=== PATIENT | female | born 1950 | race Caucasian/White ===

== ENCOUNTER 2021-02-09 07:42 | Emergency (ER) | payer MEDICARE ==
[~2021-02-09] VITALS: Ht 162.6 cm; Wt 69.3 kg
[~2021-02-09 07:42] MED LIST: CHOL50004 PO; CLOP75TA15 PO; CYAN-51 PO; EZET10TA6 PO; LACT10SO57 PO; LISI20TA28 PO; RANI150C4 PO; ROSU40TA PO; [UNRECOGNIZED DRUG - CODE] PO
[2021-02-09] MEDS ORDERED: fentaNYL/PF 50MCG/1 ML 2ML syringe IV ONE (08:20)
[2021-02-09] MEDS ORDERED: ondansetron/PF 4mg/2ml inj IV ONE (08:20)
--- NOTE | 2021-02-09 08:21 | NUR ---
PT TAKEN TO CT VIA W/C BY TECH.
[2021-02-09] MEDS ORDERED: normal saline 1000ML IV soln IVB ONE (08:25)
[2021-02-09] MEDS ORDERED: naloxone 2mg/2ml inj ONE (09:01)
[2021-02-09] MEDS ORDERED: ketorolac tromethamine 15mg/ml inj. IV ONE (09:20)
[2021-02-09] MEDS ORDERED: PROC-8 PO (10:24)
[2021-02-09] MEDS ORDERED: ACET-3067 PO (10:24)
[2021-02-09] MEDS ORDERED: proCHLORperazine 10 MG/2 ml inj IV ONE (10:25)
[2021-02-09 10:51] VITALS: BP 120/78
== END 2021-02-09 10:55 | disposition home or self-care (01) ==
LOC: ER 07:43
DX: R51.9 Headache, unspecified (principal); R11.0 Nausea; E78.00 Pure hypercholesterolemia, unspecified; I10 Essential (primary) hypertension; G56.00 Carpal tunnel syndrome, unspecified upper limb; Z86.73 Personal history of transient ischemic attack (TIA), and cerebral infarction without residual deficits; Z79.899 Other long term (current) drug therapy
CPT/HCPCS: 70450; 96374; 96375; 99284; J0780; J1885; J2310; J2405; J3010; J7030

== ENCOUNTER 2021-02-12 11:05 | Emergency (ER) | payer MEDICARE ==
[~2021-02-12] VITALS: Ht 264.2 cm; Wt 70.5 kg
[~2021-02-12 11:05] MED LIST changes: +ACET-3067 PO; +PROC-8 PO
[2021-02-12] MEDS ORDERED: PROC-8 PO (13:08)
[2021-02-12 13:30] VITALS: BP 145/79
== END 2021-02-12 13:31 | disposition home or self-care (01) ==
LOC: ER 11:06
DX: R51.9 Headache, unspecified (principal); E78.00 Pure hypercholesterolemia, unspecified; I11.9 Hypertensive heart disease without heart failure; Z79.899 Other long term (current) drug therapy
CPT/HCPCS: 99283

== ENCOUNTER 2021-02-16 19:51 | Emergency (ER) | payer OTHER, MEDICARE ==
[~2021-02-16] VITALS: Ht 162.6 cm; Wt 67.2 kg
[~2021-02-16 19:51] MED LIST changes: -ACET-3067 PO
--- NOTE | 2021-02-16 20:50 | NUR ---
PT REPORTED 10/10 PAIN, TOOK TYLENOL W/ CODINE AROUND 1100 AT ONSET OF HEADACHE. pT TOOK ZOFRAN FOR NAUSEA/VOMITING. C/O OF 4/10 PAIN NOW.
--- NOTE | 2021-02-16 20:52 | NUR ---
pT DENIES FALL. pT IS CURRENTLY TAKING PLAVIX.
--- NOTE | 2021-02-16 21:45 | NUR ---
ED MD ALCALA NOTIFIED OF PT C/O, VS. DR IRWIN TO SEE PT WHEN HE ARRIVES ON SHIFT, FREDRICK REPORTS NO NEED TO ORDER ANY PROTOCOLS AT THIS TIME.
[2021-02-16 21:51] VITALS: BP 179/92
--- NOTE | 2021-02-16 21:52 | NUR ---
PT C/O OF NAUSEA. OFFERED ANTINAUSEA MEDICATION, PT DENIED.
--- NOTE | 2021-02-16 22:14 | NUR ---
MD IRWIN AT BEDSIDE
[2021-02-16] MEDS ORDERED: acetaminophen 325mg tablet PO ONE (22:20)
[2021-02-16] MEDS ORDERED: ondansetron/PF 4mg/2ml inj IV ONE (22:20)
[2021-02-16] MEDS ORDERED: ONDA4TAB6 PO (22:20)
[2021-02-16] MEDS ORDERED: ketorolac trometh. 30mg/ml inj. IV ONE ×2 (22:20→22:40)
[2021-02-16] MEDS ORDERED: proCHLORperazine 10 MG/2 ml inj IV ONE (22:20)
== END 2021-02-16 22:53 | disposition home or self-care (01) ==
LOC: ER 19:52
DX: I10 Essential (primary) hypertension (principal); R03.0 Elevated blood-pressure reading, without diagnosis of hypertension; E78.00 Pure hypercholesterolemia, unspecified; Z86.73 Personal history of transient ischemic attack (TIA), and cerebral infarction without residual deficits; Z79.899 Other long term (current) drug therapy
CPT/HCPCS: 96374; 96375; 99284; J0780; J1885; J2405

== ENCOUNTER 2024-04-14 06:33 | Emergency (ER) | payer OTHER, MEDICARE ==
[~2024-04-14] VITALS: Ht 162.6 cm; Wt 52.0 kg
[~2024-04-14 06:33] MED LIST changes: +CYAN-104 PO; -CYAN-51 PO; -LACT10SO57 PO; +LACT10SO88 PO; +ONDA4TAB6 PO
[2024-04-14 06:43] VITALS: BP 129/89; PULSE 77; RESP 16; TEMP 97.9; O2SAT 97
== END 2024-04-14 08:06 | disposition home or self-care (01) ==
LOC: ER 06:34
DX: K59.00 Constipation, unspecified (principal); E78.00 Pure hypercholesterolemia, unspecified; I10 Essential (primary) hypertension; Z79.899 Other long term (current) drug therapy; Z86.73 Personal history of transient ischemic attack (TIA), and cerebral infarction without residual deficits
CPT/HCPCS: 99281

== ENCOUNTER 2024-04-22 10:13 | Emergency (ER) | payer OTHER, MEDICARE ==
[~2024-04-22] VITALS: Ht 162.6 cm; Wt 57.1 kg
[2024-04-22 10:17] VITALS: BP 141/86; PULSE 78; TEMP 97.2; O2SAT 96
[2024-04-22 11:04] VITALS: RESP 14
[2024-04-22] MEDS ORDERED: BISA10SU11 RC (11:56)
[2024-04-22] MEDS ORDERED: POLY119P2 PO (11:56)
[2024-04-22] MEDS ORDERED: DOCU-148 PO (11:56)
[2024-04-22] MEDS: bisacodyl 10mg suppository rectal RC STA (12:01)
[2024-04-22] MEDS: magnesium hydroxide 30ml (MOM) UD suspension PO ONE (12:01)
== END 2024-04-22 12:08 | disposition home or self-care (01) ==
LOC: ER 10:14
DX: K59.00 Constipation, unspecified (principal); E78.00 Pure hypercholesterolemia, unspecified; I10 Essential (primary) hypertension; Z79.899 Other long term (current) drug therapy; Z86.73 Personal history of transient ischemic attack (TIA), and cerebral infarction without residual deficits
CPT/HCPCS: 73000; 99283

== ENCOUNTER 2024-04-26 09:32 | Emergency (ER) | payer OTHER, MEDICARE ==
[~2024-04-26] VITALS: Ht 162.6 cm; Wt 57.6 kg
[~2024-04-26 09:32] MED LIST changes: +BISA10SU11 RC; +DOCU-148 PO; +POLY119P2 PO
[2024-04-26] MEDS ORDERED: SENN-263 PO (10:43)
[2024-04-26 10:50] VITALS: BP 110/65; PULSE 70; RESP 14; TEMP 98.5; O2SAT 99
== END 2024-04-26 10:53 | disposition home or self-care (01) ==
LOC: ER 09:32
DX: K59.00 Constipation, unspecified (principal); E78.00 Pure hypercholesterolemia, unspecified; I10 Essential (primary) hypertension; Z86.73 Personal history of transient ischemic attack (TIA), and cerebral infarction without residual deficits; Z79.899 Other long term (current) drug therapy
CPT/HCPCS: 99282

== ENCOUNTER 2024-05-07 10:50 | Emergency (ER) | payer OTHER, MEDICARE ==
[~2024-05-07] VITALS: Ht 162.6 cm; Wt 58.1 kg
[~2024-05-07 10:50] MED LIST changes: +SENN-263 PO
[2024-05-07 12:00] LABS: BASOPHILS % (AUTO) 0.1 % (0-1); EOSINOPHILS # (AUTO) 0.2 X10'3 (0-0.9); EOSINOPHILS % (AUTO) 2.5 % (0-6); HEMATOCRIT 36.7 % (35.0-45.0); HEMOGLOBIN 12.5 g/dl (12.0-16.0); LYMPHOCYTES # (AUTO) 1.1 X10'3 (1.1-4.8); MEAN CORPUSCULAR HEMOGLOBIN 32.2 PG (27.0-31.0); MEAN CORPUSCULAR HGB CONC 34.1 g/dL (33.0-36.5); MEAN CORPUSCULAR VOLUME 94.5 FL (78-98); MEAN PLATELET VOLUME 9.4 FL (7.4-10.4); MONOCYTES # (AUTO) 0.6 X10'3 (0-0.9); MONOCYTES % (AUTO) 8.9 % (2-12); NEUTROPHILS # (AUTO) 4.3 X10'3 (1.8-7.7); NEUTROPHILS % (AUTO) 70.5 % (42-75); PLATELET COUNT 145 X10'3 (140-440); RED BLOOD COUNT 3.88 X10'6 (4.20-5.60); RED CELL DISTRIBUTION WIDTH 15.2 % (11.5-14.5); WHITE BLOOD COUNT 6.2 X10'3 (4.5-11.0)
[2024-05-07 12:06] LABS: ALANINE AMINOTRANSFERASE 26 U/L (12-78); ALBUMIN 3.6 G/DL (3.4-5.0); ALBUMIN/GLOBULIN RATIO 1.1 (1.1-1.5); ALKALINE PHOSPHATASE 52 IU/L (46-116); ANION GAP 9 (8-16); ASPARTATE AMINO TRANSFERASE 22 U/L (10-37); BILIRUBIN,TOTAL 0.9 MG/DL (0.1-1.0); BLOOD UREA NITROGEN 8 MG/DL (7-18); BUN/CREATININE RATIO 9.4 (10.0-20.0); CALCIUM 9.3 MG/DL (8.5-10.1); CHLORIDE 105 MMOL/L (99-107); CREATININE 0.85 MG/DL (0.40-0.90); GLUCOSE 104 MG/DL (70-104); LIPASE 83 U/L (16-77); POTASSIUM 3.7 MMOL/L (3.5-5.1); SODIUM 140 MMOL/L (135-145); TOTAL PROTEIN 6.8 G/DL (6.4-8.2); eCRCL 49 ML/MIN; eGFR 65 ML/MIN
[2024-05-07 13:00] LABS: BILIRUBIN,URINE NEGATIVE (Neg); COLOR,URINE YELLOW (Yellow); GLUCOSE, URINE NEGATIVE (Neg); KETONES,URINE NEGATIVE (Neg); LEUKOCYTE ESTERASE ,URINE SMALL (Neg); NITRITES, URINE NEGATIVE (Neg); OCCULT BLOOD,URINE TRACE-INTACT (Neg); PH,URINE 5.5 (4.8-8.0); PROTEIN,URINE NEGATIVE (Neg); UROBILINOGEN,URINE 0.2 E.U/dL (0.2-1.0)
[2024-05-07 13:01] LABS: CLARITY,URINE SLIGHTLY CLOUDY (Clear); UA COLLECTION TYPE CLN CATCH MIDSTREAM
[2024-05-07 13:06] LABS: SQUAMOUS EPITHELIAL CELL,UR FEW /LPF (FEW); TRANSITIONAL EPI CELLS,URINE MODERATE /HPF
[2024-05-07 13:08] LABS: BACTERIA,URINE FEW /HPF (Neg); RBC,URINE NONE SEEN /HPF (0-2)
[2024-05-07] MEDS ORDERED: NITR100C6 PO (14:23)
[2024-05-07 14:48] VITALS: BP 123/81; PULSE 71; RESP 15; TEMP 98; O2SAT 97
== END 2024-05-07 14:50 | disposition home or self-care (01) ==
LOC: ER 10:51
DX: R19.7 Diarrhea, unspecified (principal); K59.00 Constipation, unspecified; E78.00 Pure hypercholesterolemia, unspecified; I10 Essential (primary) hypertension; Z79.899 Other long term (current) drug therapy; Z86.73 Personal history of transient ischemic attack (TIA), and cerebral infarction without residual deficits
CPT/HCPCS: 36415; 80053; 81001; 83690; 85025; 87088; 99283